=== PATIENT | male | born 1950 | race Asian ===

== ENCOUNTER 2019-02-18 11:51 | Outpatient (CLI) | payer MEDICARE | END 2019-02-18 23:59 | disposition home or self-care (01) | LOC: LAB 11:51 | PROVIDERS: ATTEND Nurse Practitioner Family | DX: E78.2 Mixed hyperlipidemia (principal); E11.9 Type 2 diabetes mellitus without complications; I10 Essential (primary) hypertension; R53.83 Other fatigue | CPT/HCPCS: 36415; 80053; 80061; 83036; 84436; 84443; 84481; 85025 ==

== ENCOUNTER 2021-02-19 14:23 | Emergency (ER) | payer MEDICARE ==
[~2021-02-19] VITALS: Ht 172.7 cm; Wt 75.0 kg
[2021-02-19] MEDS ORDERED: DIPH,PERTUSS(ACELL),TET VAC/PF 0.5 ML IM-VACC ONE ×2 (15:30→18:03)
[2021-02-19] MEDS ORDERED: LIDOCAINE-MPF 1%, 5ML INFIL ONE (15:30)
[2021-02-19] MEDS ORDERED: PLEASE ENTER ALLERGIES MC SCH (15:30)
--- NOTE | 2021-02-19 18:00 | NUR ---
pt presents to ed with 5 cm lav on L hand from work related accident, states he cut it on metal. pt a&o, resps even and unlabored, vss, nadn.
--- NOTE | 2021-02-19 18:37 | NUR ---
chantal zhao at bedside for suture
[2021-02-19 18:52] VITALS: BP 156/83
[2021-02-19] MEDS ORDERED: BACITRACIN ZINC OINT 500U/GM, 0.9 GM ONE (19:07)
[2021-02-19] MEDS ORDERED: SULFAMETH./TRIMETHOPRIM DS 800MG/160MG TABLET ONE (19:07)
--- NOTE | 2021-02-19 19:44 | NUR ---
pt suture cleaned and dress, pt educated on dc instructions, verbalized understanding. ambulatory to dc desk with steady gait.
== END 2021-02-19 19:51 | disposition home or self-care (01) ==
LOC: ED 14:53
DX: S61.412A Laceration without foreign body of left hand, initial encounter (principal); W26.8XXA Contact with other sharp object(s), not elsewhere classified, initial encounter; Y93.89 Activity, other specified; Y92.009 Unspecified place in unspecified non-institutional (private) residence as the place of occurrence of the external cause; Y99.8 Other external cause status
CPT/HCPCS: 12004; 90471; 90715; 99283

== ENCOUNTER 2021-03-01 10:14 | Emergency (ER) | payer MEDICARE ==
[~2021-03-01] VITALS: Ht 172.7 cm; Wt 68.4 kg
[2021-03-01 10:34] VITALS: BP 163/88
--- NOTE | 2021-03-01 11:07 | NUR ---
This tech removed nine sutures to the back of the left hand and applied steri strips to wound.
== END 2021-03-01 11:15 | disposition home or self-care (01) ==
LOC: ED 10:24
DX: S61.412D Laceration without foreign body of left hand, subsequent encounter (principal); I10 Essential (primary) hypertension; E11.9 Type 2 diabetes mellitus without complications; X58.XXXD Exposure to other specified factors, subsequent encounter
CPT/HCPCS: 99283